=== PATIENT | female | born 1935 | race Caucasian/White ===

== ENCOUNTER 2020-01-02 15:10 | Inpatient (IN) ==
[2020-01-02] MEDS ORDERED: ALBUTEROL 2.5 MG/3 ML NEB RESP TX STA ×2 (15:48→16:24)
[2020-01-02 16:17] LABS: Basophils % 0.5 % (0.0-0.8); Hematocrit 34.4 VOL% (35.7-47.0); Hemoglobin 11.1 GM/DL (12.0-16.0); Immature Granulocytes % 0.2 %; Immature Granulocytes Absolute 0.01 #; Lymphocytes # 0.4 10*3/uL (1.4-4.0); Mean Corpuscular HGB Conc 32.3 GM/DL (32-36); Mean Platelet Volume 10.5 FL (9.6-12.0); Monocytes % 12.3 % (1.7-12.7); Platelet Count 116 T/CUMM (130-400); Red Blood Count 3.34 MC/CUMM (3.8-5.5); Red Cell Distribution Width 14.7 % (9.3-17.3); White Blood Count 4.4 T/CUMM (4-12)
[2020-01-02 16:34] LABS: Albumin 3.9 G/DL (3.4-5.0); Bilirubin,Total 1.5 MG/DL (0.2-1.0); Calcium 8.9 MG/DL (8.5-10.1); Osmolality,Calculated 277.8 MOS/KG (273-304); Total Protein 7.5 G/DL (6.4-8.3)
[2020-01-02] MEDS ORDERED: methylPREDNISolone SOD SUC 125 MG/2 ML VIAL IV STA (16:49)
[2020-01-02] MEDS ORDERED: ONDANSETRON 4 MG/2 ML VIAL IV PRN (17:32)
[2020-01-02] MEDS ORDERED: ACETAMINOPHEN 325 MG TABLET PO PRN (17:32)
[2020-01-02] MEDS ORDERED: DOCUSATE SODIUM 100 MG CAPSULE PO PRN (17:32)
[2020-01-02] MEDS ORDERED: guaiFENesin/DM ER 600-30 MG TABLET PO PRN (17:32)
[2020-01-02] MEDS ORDERED: LEVOFLOXACIN INJ 750 MG in PREMIX 1 EACH IV SCH (18:00)
[2020-01-02] MEDS ORDERED: cefTRIAXone 1,000 MG in SYRINGE 1 EACH IV SCH (21:00)
[2020-01-02] MEDS: AZITHROMYCIN INJ 500 MG in SODIUM CHLORIDE 0.9% 250 ML IV SCH (21:52)
[2020-01-02] MEDS: APIXABAN 2.5 MG TABLET PO SCH (21:57)
[2020-01-02] MEDS: HydrOXYzine PAMOATE 25 MG CAPSULE PO SCH (22:03)
[2020-01-02] MEDS: RIVASTIGMINE 3 MG CAPSULE PO SCH (22:05)
[2020-01-02] MEDS: MEMANTINE 10 MG TABLET PO SCH (22:08)
[2020-01-02] MEDS: SODIUM CHLORIDE 0.9% 1,000 ML IV SCH (23:35)
[2020-01-03 04:57] LABS: Basophils % 0.5 % (0.0-0.8); Hematocrit 32.9 VOL% (35.7-47.0); Hemoglobin 10.4 GM/DL (12.0-16.0); Immature Granulocytes % 0.9 %; Immature Granulocytes Absolute 0.02 #; Lymphocytes # 0.3 10*3/uL (1.4-4.0); Lymphocytes % 12.8 % (21.3-54.2); Mean Corpuscular HGB Conc 31.6 GM/DL (32-36); Mean Corpuscular Volume 103.5 FL (87-102); Mean Platelet Volume 10.3 FL (9.6-12.0); Monocytes % 4.7 % (1.7-12.7); Neutrophils % 81.1 % (38.7-73.9); Platelet Count 102 T/CUMM (130-400); Red Blood Count 3.18 MC/CUMM (3.8-5.5); Red Cell Distribution Width 14.4 % (9.3-17.3); White Blood Count 2.1 T/CUMM (4-12)
[2020-01-03 05:27] LABS: Bilirubin,Total 1.2 MG/DL (0.2-1.0); Calcium 8.4 MG/DL (8.5-10.1); Osmolality,Calculated 283.4 MOS/KG (273-304); Thyroid Stimulating Hormone 2.84 uIU/ml (0.358-3.74); Total Protein 6.7 G/DL (6.4-8.3)
[2020-01-03] MEDS: LEVOTHYROXINE 25 MCG TABLET PO SCH (05:50)
[2020-01-03] MEDS: RIVASTIGMINE 3 MG CAPSULE PO SCH ×2 (08:17→22:00)
[2020-01-03] MEDS: POTASSIUM CHLORIDE 20 MEQ TABLET PO SCH (08:17)
[2020-01-03] MEDS: PANTOPRAZOLE 40 MG TABLET PO SCH (08:17)
[2020-01-03] MEDS: NEBIVOLOL 10 MG TABLET PO SCH (08:17)
[2020-01-03] MEDS: ESCITALOPRAM 10 MG TABLET PO SCH (08:18)
[2020-01-03] MEDS: APIXABAN 2.5 MG TABLET PO SCH ×2 (08:18→22:00)
[2020-01-03] MEDS: FERROUS SULFATE 325 MG TABLET PO SCH (08:18)
[2020-01-03] MEDS: MEMANTINE 10 MG TABLET PO SCH ×2 (08:18→22:00)
[2020-01-03] MEDS: cefTRIAXone 1,000 MG in SYRINGE 1 EACH IV SCH (12:51)
[2020-01-03] MEDS: SODIUM CHLORIDE 0.9% 1,000 ML IV SCH (12:51)
[2020-01-03] MEDS: ALBUTEROL/IPRATROPIUM 3 ML NEB RESP TX PRN ×2 (18:15→22:55)
[2020-01-03] MEDS: HydrOXYzine PAMOATE 25 MG CAPSULE PO SCH (22:01)
[2020-01-03] MEDS: AZITHROMYCIN INJ 500 MG in SODIUM CHLORIDE 0.9% 250 ML IV SCH (22:02)
[2020-01-04] MEDS ORDERED: METOPROLOL TARTRATE 5 MG/5 ML VIAL IV ONE (03:30)
[2020-01-04 05:33] LABS: Basophils % 0.2 % (0.0-0.8); Hematocrit 33.1 VOL% (35.7-47.0); Hemoglobin 10.4 GM/DL (12.0-16.0); Immature Granulocytes % 0.3 %; Immature Granulocytes Absolute 0.02 #; Lymphocytes # 0.4 10*3/uL (1.4-4.0); Lymphocytes % 6.7 % (21.3-54.2); Mean Corpuscular HGB Conc 31.4 GM/DL (32-36); Mean Corpuscular Volume 105.1 FL (87-102); Mean Platelet Volume 11.2 FL (9.6-12.0); Monocytes % 8.3 % (1.7-12.7); Neutrophils % 84.5 % (38.7-73.9); Platelet Count 103 T/CUMM (130-400); Red Blood Count 3.15 MC/CUMM (3.8-5.5); Red Cell Distribution Width 14.5 % (9.3-17.3); White Blood Count 5.8 T/CUMM (4-12)
[2020-01-04 05:58] LABS: Albumin 3.2 G/DL (3.4-5.0); Calcium 8.2 MG/DL (8.5-10.1); Osmolality,Calculated 283.5 MOS/KG (273-304); Total Protein 6.5 G/DL (6.4-8.3)
[2020-01-04] MEDS: LEVOTHYROXINE 25 MCG TABLET PO SCH (06:30)
[2020-01-04] MEDS: ALBUTEROL/IPRATROPIUM 3 ML NEB RESP TX PRN (07:52)
[2020-01-04] MEDS ORDERED: FUROSEMIDE 40 MG/4 ML VIAL IV ONE ×2 (08:23→18:00)
[2020-01-04] MEDS ORDERED: LEVALBUTEROL 1.25 MG/3 ML NEB RESP TX PRN (08:24)
[2020-01-04] MEDS: SODIUM CHLORIDE 0.9% 1,000 ML IV SCH (08:55)
[2020-01-04] MEDS: RIVASTIGMINE 3 MG CAPSULE PO SCH ×2 (08:59→20:34)
[2020-01-04] MEDS: APIXABAN 2.5 MG TABLET PO SCH ×2 (08:59→20:31)
[2020-01-04] MEDS: NEBIVOLOL 10 MG TABLET PO SCH (08:59)
[2020-01-04] MEDS: MEMANTINE 10 MG TABLET PO SCH ×2 (08:59→20:31)
[2020-01-04] MEDS: POTASSIUM CHLORIDE 20 MEQ TABLET PO SCH (08:59)
[2020-01-04] MEDS: ESCITALOPRAM 10 MG TABLET PO SCH (08:59)
[2020-01-04] MEDS: PANTOPRAZOLE 40 MG TABLET PO SCH (08:59)
[2020-01-04] MEDS: FERROUS SULFATE 325 MG TABLET PO SCH (08:59)
[2020-01-04] MEDS ORDERED: methylPREDNISolone SOD SUC 125 MG/2 ML VIAL IV SCH (09:00)
[2020-01-04] MEDS: DIGOXIN 0.5 MG/2 ML AMP IV SCH ×2 (10:26→19:35)
[2020-01-04] MEDS: methylPREDNISolone SOD SUC 40 MG/1 ML VIAL IV SCH ×2 (10:35→22:44)
[2020-01-04] MEDS: BUDESONIDE 0.5 MG/2 ML NEB RESP TX SCH ×2 (10:55→19:35)
[2020-01-04] MEDS: ARFORMOTEROL 15 MCG/2 ML NEB RESP TX SCH ×2 (10:55→19:35)
[2020-01-04] MEDS: cefTRIAXone 1,000 MG in SYRINGE 1 EACH IV SCH (12:22)
[2020-01-04] MEDS: HydrOXYzine PAMOATE 25 MG CAPSULE PO SCH (20:31)
[2020-01-04] MEDS: AZITHROMYCIN INJ 500 MG in SODIUM CHLORIDE 0.9% 250 ML IV SCH (20:32)
[2020-01-05 05:19] LABS: Basophils % 0.2 % (0.0-0.8); Hematocrit 33.9 VOL% (35.7-47.0); Hemoglobin 11.1 GM/DL (12.0-16.0); Immature Granulocytes % 0.6 %; Immature Granulocytes Absolute 0.03 #; Lymphocytes # 0.4 10*3/uL (1.4-4.0); Lymphocytes % 9.4 % (21.3-54.2); Mean Corpuscular HGB Conc 32.7 GM/DL (32-36); Mean Platelet Volume 10.9 FL (9.6-12.0); Monocytes % 7.7 % (1.7-12.7); Neutrophils % 82.1 % (38.7-73.9); Platelet Count 117 T/CUMM (130-400); Red Blood Count 3.39 MC/CUMM (3.8-5.5); Red Cell Distribution Width 13.9 % (9.3-17.3); White Blood Count 4.7 T/CUMM (4-12)
[2020-01-05 05:40] LABS: Albumin 3.3 G/DL (3.4-5.0); Bilirubin,Total 2.2 MG/DL (0.2-1.0); Calcium 8.7 MG/DL (8.5-10.1); Total Protein 6.8 G/DL (6.4-8.3)
[2020-01-05] MEDS: LEVOTHYROXINE 25 MCG TABLET PO SCH (06:07)
[2020-01-05] MEDS: ARFORMOTEROL 15 MCG/2 ML NEB RESP TX SCH ×2 (07:00→19:07)
[2020-01-05] MEDS: BUDESONIDE 0.5 MG/2 ML NEB RESP TX SCH ×2 (07:00→19:07)
[2020-01-05] MEDS: POTASSIUM CHLORIDE 20 MEQ TABLET PO SCH (09:07)
[2020-01-05] MEDS: RIVASTIGMINE 3 MG CAPSULE PO SCH ×2 (09:07→20:10)
[2020-01-05] MEDS: MEMANTINE 10 MG TABLET PO SCH ×2 (09:07→20:10)
[2020-01-05] MEDS: ESCITALOPRAM 10 MG TABLET PO SCH (09:08)
[2020-01-05] MEDS: APIXABAN 2.5 MG TABLET PO SCH ×2 (09:08→20:09)
[2020-01-05] MEDS: PANTOPRAZOLE 40 MG TABLET PO SCH (09:08)
[2020-01-05] MEDS: NEBIVOLOL 10 MG TABLET PO SCH (09:08)
[2020-01-05] MEDS: FERROUS SULFATE 325 MG TABLET PO SCH (09:08)
[2020-01-05] MEDS ORDERED: DIGOXIN 0.125 MG TABLET PO ONE (09:56)
[2020-01-05] MEDS ORDERED: POTASSIUM CHLORIDE 20 MEQ TABLET PO ONE (09:56)
[2020-01-05] MEDS: methylPREDNISolone SOD SUC 40 MG/1 ML VIAL IV SCH (11:11)
[2020-01-05] MEDS: cefTRIAXone 1,000 MG in SYRINGE 1 EACH IV SCH (11:14)
[2020-01-05] MEDS ORDERED: DIGOXIN 0.125 MG TABLET PO SCH (13:00)
[2020-01-05] MEDS: AZITHROMYCIN INJ 500 MG in SODIUM CHLORIDE 0.9% 250 ML IV SCH (20:10)
[2020-01-05] MEDS: HydrOXYzine PAMOATE 25 MG CAPSULE PO SCH (20:10)
[2020-01-06] MEDS: LEVOTHYROXINE 25 MCG TABLET PO SCH (06:16)
[2020-01-06] MEDS: BUDESONIDE 0.5 MG/2 ML NEB RESP TX SCH (07:41)
[2020-01-06] MEDS: ARFORMOTEROL 15 MCG/2 ML NEB RESP TX SCH (07:41)
[2020-01-06] MEDS ORDERED: predniSONE 20 MG TABLET PO SCH (09:00)
[2020-01-06] MEDS: FERROUS SULFATE 325 MG TABLET PO SCH (09:06)
[2020-01-06] MEDS: ESCITALOPRAM 10 MG TABLET PO SCH (09:06)
[2020-01-06] MEDS: RIVASTIGMINE 3 MG CAPSULE PO SCH (09:06)
[2020-01-06] MEDS: NEBIVOLOL 10 MG TABLET PO SCH (09:07)
[2020-01-06] MEDS: APIXABAN 2.5 MG TABLET PO SCH (09:07)
[2020-01-06] MEDS: POTASSIUM CHLORIDE 20 MEQ TABLET PO SCH (09:07)
[2020-01-06] MEDS: PANTOPRAZOLE 40 MG TABLET PO SCH (09:07)
[2020-01-06] MEDS: MEMANTINE 10 MG TABLET PO SCH (09:07)
[2020-01-06] MEDS ORDERED: SODIUM CHLORIDE 0.9% 100 ML IV ONE (11:23)
[2020-01-06] MEDS: cefTRIAXone 1,000 MG in SYRINGE 1 EACH IV SCH (11:37)
[2020-01-06 12:09] VITALS: BP 111/50
== END 2020-01-06 15:00 | disposition home health service (06) | DRG 202 ==
LOC: N.ED 15:10 → INTOOBSV 17:26 → N.EDINP 17:26 → N.TELES 18:44
PROVIDERS: ADMIT Internal Medicine; ATTEND Internal Medicine

== ENCOUNTER 2021-04-02 15:38 | Observation (INO) ==
[2021-04-02] MEDS ORDERED: SODIUM CHLORIDE 0.9% 1,000 ML IV STA (17:19)
[2021-04-02 18:08] LABS: Basophils % 0.2 % (0.0-0.8); Immature Granulocytes % 0.8 %; Immature Granulocytes Absolute 0.08 #; Lymphocytes # 0.8 10*3/uL (1.4-4.0); Lymphocytes % 7.3 % (21.3-54.2); Mean Corpuscular HGB Conc 31.3 GM/DL (32-36); Mean Corpuscular Volume 105.6 FL (87-102); Mean Platelet Volume 10.1 FL (9.6-12.0); Neutrophils % 80.7 % (38.7-73.9); Platelet Count 132 T/CUMM (130-400); Red Blood Count 3.03 MC/CUMM (3.8-5.5); Red Cell Distribution Width 14.2 % (9.3-17.3); White Blood Count 10.3 T/CUMM (4-12)
[2021-04-02 18:29] LABS: Alanine Aminotransferase 20 U/L (13-56); Albumin 3.5 G/DL (3.4-5.0); Alkaline Phosphatase 51 U/L (45-117); Aspartate Amino Transferase 22 U/L (0-37); Blood Urea Nitrogen 20 MG/DL (7-18); Calcium 9.2 MG/DL (8.5-10.1); Carbon Dioxide 28 MMOL/L (21-32); Estimated Glom Filtration Rate 73 ML/MIN; Glucose 116 MG/DL (74-106); Osmolality,Calculated 282.4 MOS/KG (273-304); Sodium 140 MMOL/L (136-145); Total Protein 6.6 G/DL (6.4-8.2); Troponin I < 0.015 NG/ML (0.00-0.045)
[2021-04-02 18:55] LABS: Bilirubin,Urine Negative (Negative); Blood, Urine Negative (Negative); Glucose,Urine (UA) Negative (Negative); Ketones,Urine 5 mg/dL (Negative); Mucus,Urine Many /LPF (Occasional); Nitrite,Urine Positive (Negative); Protein,Urine 100 MG/DL; RBC,Urine 4 /HPF (0-4); Squamous Epithelial Cell,Urine Occasional /HPF (0-10); Urine Appearance Slightly Hazy (Clear); Urine Color Amber (Yellow); Urine Specific Gravity 1.027 (1.001-1.035)
[2021-04-02 19:00] LABS: Barbiturates Screen,Urine Negative (Negative); Benzodiazepines Screen,Urine Negative (Negative); Cannabinoid Screen,Urine Negative (Negative); Opiate Screen,Urine Negative (Negative); Phencyclidine Screen,Urine Negative (Negative)
[2021-04-02] MEDS ORDERED: DEXTROSE 50% 25 GM/50 ML VIAL IV PRN (22:00)
[2021-04-02] MEDS ORDERED: GLUCAGON 1 MG VIAL IM PRN (22:00)
[2021-04-02] MEDS ORDERED: ACETAMINOPHEN 325 MG TABLET PO PRN (22:01)
[2021-04-02] MEDS ORDERED: DOCUSATE SODIUM 100 MG CAPSULE PO PRN (22:01)
[2021-04-02] MEDS ORDERED: ONDANSETRON 4 MG/2 ML VIAL IV PRN (22:01)
[2021-04-02] MEDS ORDERED: SODIUM CHLORIDE 0.9% 1,000 ML IV SCH (22:30)
[2021-04-03 05:45] LABS: Basophils % 0.1 % (0.0-0.8); Calcium 8.5 MG/DL (8.5-10.1); Hemoglobin 9.3 GM/DL (12.0-16.0); Immature Granulocytes % 0.5 %; Immature Granulocytes Absolute 0.04 #; Lymphocytes # 0.9 10*3/uL (1.4-4.0); Mean Corpuscular HGB Conc 32.1 GM/DL (32-36); Mean Corpuscular Volume 106.2 FL (87-102); Mean Platelet Volume 10.5 FL (9.6-12.0); Monocytes % 12.3 % (1.7-12.7); Neutrophils % 76.1 % (38.7-73.9); Osmolality,Calculated 284.1 MOS/KG (273-304); Platelet Count 121 T/CUMM (130-400); Potassium 3.9 MMOL/L (3.5-5.1); Red Blood Count 2.73 MC/CUMM (3.8-5.5); White Blood Count 7.7 T/CUMM (4-12)
[2021-04-03 06:05] LABS: Folate 12.85 NG/ML (5.38-24.0)
[2021-04-03 06:22] LABS: Hypochromasia 1+; Microcytosis 1+
[2021-04-03] MEDS: cefTRIAXone 1,000 MG in SODIUM CHLORIDE 0.9% 100 ML IV SCH (10:45)
[2021-04-03] MEDS: APIXABAN 2.5 MG TABLET PO SCH ×2 (10:45→20:24)
[2021-04-03] MEDS: LEVOTHYROXINE 25 MCG TABLET PO SCH (10:45)
[2021-04-03] MEDS: FERROUS SULFATE 325 MG TABLET PO SCH (10:45)
[2021-04-03] MEDS ORDERED: FUROSEMIDE 20 MG/2 ML VIAL IV ONE (12:21)
[2021-04-03] MEDS ORDERED: ALBUTEROL/IPRATROPIUM 3 ML NEB RESP TX SCH (13:00)
[2021-04-03] MEDS: DEXT 5% NACL 0.45% KCL 20 MEQ 20 MEQ/1,000 ML BAG IV SCH (19:30)
[2021-04-03] MEDS: ALBUTEROL/IPRATROPIUM 3 ML NEB RESP TX SCH (19:33)
[2021-04-04] MEDS: ALBUTEROL/IPRATROPIUM 3 ML NEB RESP TX SCH ×6 (00:10→20:48)
[2021-04-04 06:57] LABS: Basophils % 0.2 % (0.0-0.8); Eosinophils % 0.2 % (0.00-10.9); Hematocrit 29.4 VOL% (35.7-47.0); Hemoglobin 9.3 GM/DL (12.0-16.0); Immature Granulocytes % 0.3 %; Immature Granulocytes Absolute 0.02 #; Lymphocytes # 0.8 10*3/uL (1.4-4.0); Lymphocytes % 13.2 % (21.3-54.2); Mean Corpuscular HGB Conc 31.6 GM/DL (32-36); Mean Platelet Volume 10.5 FL (9.6-12.0); Monocytes % 9.8 % (1.7-12.7); Neutrophils % 76.3 % (38.7-73.9); Platelet Count 132 T/CUMM (130-400); Red Cell Distribution Width 13.7 % (9.3-17.3); White Blood Count 6.1 T/CUMM (4-12)
[2021-04-04 07:10] LABS: Calcium 8.5 MG/DL (8.5-10.1); Osmolality,Calculated 274.7 MOS/KG (273-304); Potassium 3.3 MMOL/L (3.5-5.1)
[2021-04-04 07:19] LABS: Eosinophils 1 % (0-10); Lymphocytes 12 % (20-55); Platelet Estimate Adequate; Segmented Neutrophils 79 % (50-85); Total Cells Counted 100
[2021-04-04 07:20] LABS: Hypochromasia Slight; Microcytosis Slight
[2021-04-04] MEDS: cefTRIAXone 1,000 MG in SODIUM CHLORIDE 0.9% 100 ML IV SCH (08:57)
[2021-04-04] MEDS: POTASSIUM CHLORIDE RIDER 10 MEQ in PREMIX 1 EACH IV PRN ×2 (09:12→15:15)
[2021-04-04] MEDS: APIXABAN 2.5 MG TABLET PO SCH ×2 (10:55→20:34)
[2021-04-04] MEDS: LEVOTHYROXINE 25 MCG TABLET PO SCH (10:55)
[2021-04-04] MEDS: FERROUS SULFATE 325 MG TABLET PO SCH (10:55)
[2021-04-04] MEDS: DEXT 5% NACL 0.45% KCL 20 MEQ 20 MEQ/1,000 ML BAG IV SCH (20:34)
[2021-04-05] MEDS: ALBUTEROL/IPRATROPIUM 3 ML NEB RESP TX SCH ×3 (01:00→07:25)
[2021-04-05 07:11] LABS: Basophils % 0.4 % (0.0-0.8); Eosinophils # 0.1 10*3/uL (0.0-0.87); Hematocrit 28.3 VOL% (35.7-47.0); Hemoglobin 9.2 GM/DL (12.0-16.0); Immature Granulocytes % 0.4 %; Immature Granulocytes Absolute 0.02 #; Lymphocytes # 0.7 10*3/uL (1.4-4.0); Lymphocytes % 14.8 % (21.3-54.2); Mean Corpuscular HGB Conc 32.5 GM/DL (32-36); Mean Corpuscular Volume 103.7 FL (87-102); Mean Platelet Volume 10.1 FL (9.6-12.0); Monocytes % 12.1 % (1.7-12.7); Neutrophils % 71.3 % (38.7-73.9); Platelet Count 143 T/CUMM (130-400); Red Blood Count 2.73 MC/CUMM (3.8-5.5); Red Cell Distribution Width 13.4 % (9.3-17.3); White Blood Count 4.8 T/CUMM (4-12)
[2021-04-05 07:33] LABS: Folate 9.96 NG/ML (5.38-24.0); Vitamin B12 433 PG/ML (211-911)
[2021-04-05 08:32] LABS: Hemoglobin A1 (Alkaline) 97.5 % (96.5-98.5); Hemoglobin A2 (Alkaline) 2.5 % (1.5-3.5)
[2021-04-05] MEDS ORDERED: MEMANTINE 10 MG TABLET PO SCH (09:00)
[2021-04-05] MEDS ORDERED: NEBIVOLOL 10 MG TABLET PO SCH (09:00)
[2021-04-05 09:06] LABS: Sedimentation Rate-Westergren 64 MM/HR (0-30)
[2021-04-05] MEDS: LEVOTHYROXINE 25 MCG TABLET PO SCH (09:24)
[2021-04-05] MEDS: FERROUS SULFATE 325 MG TABLET PO SCH (09:24)
[2021-04-05] MEDS: APIXABAN 2.5 MG TABLET PO SCH (09:24)
[2021-04-05] MEDS: cefTRIAXone 1,000 MG in SODIUM CHLORIDE 0.9% 100 ML IV SCH (09:24)
[2021-04-05 12:17] VITALS: BP 144/82
[2021-04-05 12:50] LABS: Calcium 8.7 MG/DL (8.5-10.1); Osmolality,Calculated 273.5 MOS/KG (273-304)
[2021-04-05] MEDS ORDERED: ALBUTEROL/IPRATROPIUM 3 ML NEB RESP TX SCH (13:00)
== END 2021-04-05 14:15 ==
LOC: EDBD → EDUNIT# → N.EDINP 15:38 → N.ED 15:38 → N.4E 21:06
PROVIDERS: ADMIT Hospitalist; ATTEND Hospitalist